=== PATIENT | female | born 1965 | race African-American/Black ===

== ENCOUNTER 2018-08-11 16:32 | Emergency (ER) | payer SELFPAY ==
--- NOTE | 2018-08-11 17:01 | ER Document Report ---
ED Medical Screen (RME) - General Chief Complaint: Headache Stated Complaint: HEADACHE/DIARRHEA Time Seen by Provider: 08/11/18 16:57 Mode of Arrival: Ambulatory Information source: Patient Notes: 53-year-old female presented to ED for headache since yesterday cough congestion for 2-3 weeks diarrhea for 2-3 days worse yesterday with 4-5 stools yesterday pain in the left shoulder and "bad "headache. When I asked her how bad the headache is she says it just hurts off and on. She is very congested. Lungs clear respirations regular and unlabored denies abdominal pain. I have greeted and performed a rapid initial assessment of this patient. A comprehensive ED assessment and evaluation of the patient, analysis of test results and completion of medical decision making process will be conducted by an additional ED providers. TRAVEL OUTSIDE OF THE [place] IN LAST 30 DAYS: No - Related Data Allergies/Adverse Reactions: No Known Allergies Allergy (Unverified 08/11/18 16:33) Physical Exam - Vital signs Vitals: Temp Pulse Resp BP Pulse Ox 98.2 F 94 16 141/89 H 97 08/11/18 16:37 08/11/18 16:37 08/11/18 16:37 08/11/18 16:37 08/11/18 16:37 Course - Vital Signs Vital signs: Temp Pulse Resp BP Pulse Ox 98.2 F 94 16 141/89 H 97 08/11/18 16:37 08/11/18 16:37 08/11/18 16:37 08/11/18 16:37 08/11/18 16:37
[2018-08-11 17:21] LABS: ABSOLUTE BASOPHILS # (AUTO) 0.1 10^3/uL (0.0-0.2); ABSOLUTE EOSINOPHILS # (AUTO) 0.1 10^3/uL (0.0-0.6); ABSOLUTE LYMPHOCYTES (AUTO) 2.4 10^3/uL (0.5-4.7); ABSOLUTE MONOCYTES (AUTO) 0.7 10^3/uL (0.1-1.4); ABSOLUTE NEUT (AUTO) 3.5 10^3/uL (1.7-8.2); BASOPHILS % (AUTO) 1.2 % (0-2); HEMATOCRIT 35.9 % (36.0-47.0); HEMOGLOBIN 11.3 g/dL (12.0-15.5); LYMPHOCYTES % (AUTO) 35.8 % (13-45); MEAN CORPUSCULAR HEMOGLOBIN 22.8 pg (27.0-33.4); MEAN CORPUSCULAR HGB CONC 31.5 g/dL (32.0-36.0); MEAN CORPUSCULAR VOLUME 72 fl (80-97); MONOCYTES % (AUTO) 10.5 % (3-13); PLATELET COUNT 345 10^3/uL (150-450); RED BLOOD COUNT 4.96 10^6/uL (3.72-5.28); RED CELL DISTRIBUTION WIDTH 15.8 % (11.5-14.0); SEGMENTED NEUTROPHILS % (AUTO) 51.5 % (42-78); TOTAL CELLS COUNTED % (AUTO) 100 %; WHITE BLOOD COUNT 6.7 10^3/uL (4.0-10.5)
[2018-08-11 17:26] LABS: APPEARANCE,URINE CLEAR; BILIRUBIN,URINE NEGATIVE (NEGATIVE); COLOR,URINE YELLOW; GLUCOSE, URINE NEGATIVE (NEGATIVE); KETONES,URINE NEGATIVE (NEGATIVE); LEUKOCYTE ESTERASE,URINE NEGATIVE (NEGATIVE); NITRITE,URINE NEGATIVE (NEGATIVE); PROTEIN,URINE NEGATIVE (NEGATIVE); URINE SPECIFIC GRAVITY 1.015; UROBILINOGEN,URINE NEGATIVE mg/dL (<2.0)
--- NOTE | 2018-08-11 17:26 | RADIOLOGY REPORT (SQ) ---
EXAM DESCRIPTION: SHOULDER LEFT 2 OR MORE VIEWS COMPLETED DATE/TIME: 08/11/2018 5:18 pm REASON FOR STUDY: left shoulder pain with pain with rom COMPARISON: None. NUMBER OF VIEWS: Three views. TECHNIQUE: Internal rotation, external rotation, and Y view images acquired of the left shoulder. LIMITATIONS: None. FINDINGS: MINERALIZATION: Normal. BONES: No acute fracture or dislocation. No worrisome bone lesions. JOINTS: No dislocation. VISUALIZED LUNGS AND RIBS: No pneumothorax. No rib fracture. SOFT TISSUES: No radiopaque foreign body. OTHER: No other significant finding. IMPRESSION: NEGATIVE STUDY OF THE LEFT SHOULDER. NO RADIOGRAPHIC EVIDENCE OF ACUTE INJURY. TECHNICAL DOCUMENTATION: JOB ID: [id number] [employer]- All Rights Reserved Reading location - IP/workstation name: [email or web address]
--- NOTE | 2018-08-11 17:27 | RADIOLOGY REPORT (SQ) ---
EXAM DESCRIPTION: CHEST 2 VIEWS COMPLETED DATE/TIME: 08/11/2018 5:18 pm REASON FOR STUDY: cough congestion COMPARISON: None. EXAM PARAMETERS: NUMBER OF VIEWS: two views TECHNIQUE: Digital Frontal and Lateral radiographic views of the chest acquired. RADIATION DOSE: NA LIMITATIONS: none FINDINGS: LUNGS AND PLEURA: No opacities. There is focal radiodensity on the left possibly pulmonar y nodule. No effusions. MEDIASTINUM AND HILAR STRUCTURES: No masses or contour abnormalities. HEART AND VASCULAR STRUCTURES: Heart normal size. No evidence for failure. BONES: No acute findings. HARDWARE: None in the chest. OTHER: No other significant finding. IMPRESSION: No acute findings. Possible nodule left. TECHNICAL DOCUMENTATION: JOB ID: [id number] [employer]- All Rights Reserved Reading location - IP/workstation name: [email or web address]
[2018-08-11] MEDS ORDERED: IBUPROFEN 600 MG TABLET PO ONE (17:40)
[2018-08-11] MEDS ORDERED: LIDOCAINE 5% (700 MG) TRANSDERMAL ADH..PATCH TP ONE (17:41)
[2018-08-11] MEDS ORDERED: ACETAMINOPHEN 325 MG TABLET PO ONE (17:41)
[2018-08-11 17:46] LABS: ALANINE AMINOTRANSFERASE 24 U/L (9-52); ALBUMIN 4.6 g/dL (3.5-5.0); ALKALINE PHOSPHATASE 114 U/L (38-126); ANION GAP 9 (5-19); ASPARTATE AMINO TRANSFERASE 25 U/L (14-36); BILIRUBIN,DIRECT 0.3 mg/dL (0.0-0.4); BILIRUBIN,TOTAL 0.4 mg/dL (0.2-1.3); BLOOD UREA NITROGEN 12 mg/dL (7-20); CALCIUM 9.9 mg/dL (8.4-10.2); CARBON DIOXIDE 26 mmol/L (22-30); CHLORIDE 108 mmol/L (98-107); GLUCOSE 104 mg/dL (75-110); POTASSIUM 3.9 mmol/L (3.6-5.0); SODIUM 142.7 mmol/L (137-145); TOTAL PROTEIN 8.4 g/dL (6.3-8.2)
--- NOTE | 2018-08-11 17:49 | ER Document Report ---
ED General - General Chief Complaint: Headache Stated Complaint: HEADACHE/DIARRHEA Time Seen by Provider: 08/11/18 16:57 Mode of Arrival: Ambulatory Notes: Patient is a 53-year-old female who presents the emergency department with a chief complaint of diarrhea. She states that she has had diarrhea for the past 2 days. 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 She states that her residents have been having diarrhea and she has been working with them closely. Her shifts are 12-hour shifts and she is on her feet most of the day. She states that she had diarrhea about 5 times yesterday. She now has a associated headache. She also complains of left shoulder pain that has been hurting for the past 2 weeks. 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 She denies any vomiting or nausea. She denies any dysuria. TRAVEL OUTSIDE OF THE [place] IN LAST 30 DAYS: No - Related Data Allergies/Adverse Reactions: No Known Allergies Allergy (Unverified 08/11/18 16:33) Past Medical History - General Information source: Patient - Social History Smoking Status: Never Smoker Chew tobacco use (# tins/day): No Frequency of alcohol use: Occasional Drug Abuse: None Lives with: Family Family History: Reviewed & Not Pertinent Patient has suicidal ideation: No Patient has homicidal ideation: No Renal/ Medical History: Denies: Hx Peritoneal Dialysis Past Surgical History: Reports: Hx Orthopedic Surgery - bilateral bunion removal Review of Systems - Review of Systems Notes: REVIEW OF SYSTEMS: CONSTITUTIONAL : Denies recent illness. Denies recent unintentional weight loss. Denies fever, chills, or sweats. EENT: Denies eye, ear, throat, or mouth pain, discharge, or symptoms. Denies nasal or sinus congestion. CARDIOVASCULAR: Denies chest pain. RESPIRATORY: Denies shortness of breath, cough, congestion, difficulty b reathing, or wheezing. GASTROINTESTINAL: See HPI GENITOURINARY: Denies difficulty urinating, burning, blood in urine, urgency or frequency. MUSCULOSKELETAL: Denies neck and back pain. Denies joint pain or swelling. SKIN: Denies rash, itchiness, or lesions HEMATOLOGIC : Denies easy bruising or bleeding. LYMPHATIC: Denies swollen, painful, enlarged glands. NEUROLOGICAL: HPI PSYCHIATRIC: Denies stress, anxiety, alteration in sleep patterns, or depression. All other systems reviewed and negative. Physical Exam - Vital signs Vitals: Temp Pulse Resp BP Pulse Ox 98.2 F 94 16 141/89 H 97 08/11/18 16:37 08/11/18 16:37 08/11/18 16:37 08/11/18 16:37 08/11/18 16:37 - Notes Notes: PHYSICAL EXAMINATION: GENERAL: Appears well, healthy, well-nourished, no acute distress. HEAD: Normocephalic, atraumatic. EYES: PERRL, conjunctiva normal, all extraocular movements intact, sclera nonicteric ENT: Dry mucous membranes. NECK: Supple, no noticeable swelling, redness, rash. Normal range of motion. LUNGS: Equal breath sounds bilaterally and clear to auscultation. No wheezes rales or rhonchi. CARDIOVASCULAR: S1-S2, regular rate, regular rhythm. Radial pulses 2+, normal. ABDOMEN: Normoactive bowel sounds. Soft, mildly tender, no guarding, no rebo und tenderness, and no masses palpated. EXTREMITIES: Normal strength and range of motion, no pitting or edema. No cyanosis. NEUROLOGICAL: Moves all extremities upon command. Strength 5/5 in all e xtremities. PSYCH: Normal mood, normal affect. SKIN: Warm, dry. No rash, lesions, ulcerations noted. Normal skin turgor. Course - Re-evaluation Re-evalutation: 08/11/18 17:49 I suspect the patient's headache is related to her diarrhea and dehydrated state. Her mucous membranes are dry. I gave the patient option of p.o. fluids or IV fluids and she requested to have p.o. fluids. She will also be given lidocaine patches, Motrin, and Tylenol for her pain. 08/11/18 17:51 Patient's labs are unremarkable at this time. We will see how she tolerates her p.o. fluid and see if her headache goes away with Motrin and Tylenol. Her left shoulder pain will be treated with lidocaine patch. 08/11/18 18:18 Her chest x-ray and left shoulder x-ray are unremarkable. I do not suspect she has any acute disease process at this time. Do not suspect she has an acute intracranial bleed because she has no focal neurological deficits. I again think that she is having headache due to her dehydration. She is able to tolerate her p.o. fluids. She states she is feeling better after having her Motrin and Tylenol. Verbal discharge instructions were given to the patient. They verbalized understanding. They are stable for discharge. - Vital Signs Vital signs: Temp Pulse Resp BP Pulse Ox 97.6 F 73 16 131/79 H 100 08/11/18 19:11 08/11/18 19:11 08/11/18 19:11 08/11/18 19:11 08/11/18 19:11 - Laboratory Result Diagrams: 08/11/18 17:05 08/11/18 17:05 Laboratory results interpreted by me: 08/11/18 08/11/18 08/11/18 17:05 17:05 17:10 Hgb 11.3 L Hct 35.9 L MCV 72 L MCH 22.8 L MCHC 31.5 L RDW 15.8 H Chloride 108 H Total Protein 8.4 H Urine Ascorbic Acid 40 H Discharge - Discharge Clinical Impression: Diarrhea Qualifiers: Diarrhea type: unspecified type Qualified Code(s): R19.7 - Diarrhea, unspecified Left shoulder pain Qualifiers: Chronicity: acute Qualified Code(s): M25.512 - Pain in left shoulder Headache Qualifiers: Headache type: unspecified Headache chronicity pattern: acute headache Intractability: not intractable Qualified Code(s): R51 - Headache Condition: Stable Disposition: HOME, SELF-CARE Additional Instructions: Your seen today in the emergency department for a headache, diarrhea, and left shoulder pain. Please make sure you stay well hydrated and drink plenty of fluids. Eat some bananas to help make your stool firmer. You may drink Gatorade to help replace electrolytes. Your headache is most likely due to de hydration. You can take Motrin 600 mg and Tylenol 1000 mg every 6 hours as needed for the pain. You can use [id number] Aspercreme with lidocaine and applied to your left shoulder as needed for pain. You may also use on other joints that are sore. If you develop a fever greater than 100.4 F, are unable to keep food or drink down, or have any symptoms that are worrisome to you, please return to the emergency department. You did have a possible nodule on your chest x-ray. Please follow-up with a primary care provider within the next week.
[2018-08-11 19:12] VITALS: BP 131/79
== END 2018-08-11 19:14 | disposition home or self-care (01) ==
LOC: ER 16:32
DX: R51 Headache (principal); R19.7 Diarrhea, unspecified; M25.512 Pain in left shoulder
CPT/HCPCS: 36415; 71046; 80053; 81001; 85025; 99284

== ENCOUNTER → 2019-02-16 | Outpatient (CLI) | payer BC | LOC: WI 10:04 | PROVIDERS: ATTEND Family Medicine Geriatric Medicine | DX: Z12.31 Encounter for screening mammogram for malignant neoplasm of breast (principal) | CPT/HCPCS: 77067 ==

== ENCOUNTER 2020-05-24 07:42 | Emergency (ER) | payer SELFPAY ==
[2020-05-24] MEDS ORDERED: NORMAL SALINE 1000 ML 1,000 ML IV ONE (09:02)
--- NOTE | 2020-05-24 09:05 | ER Document Report ---
ED General - General Chief Complaint: Headache Stated Complaint: HEADACHE/STUFFY NOSE/VOMITING Time Seen by Provider: 05/24/20 08:06 Primary Care Provider: CHANTEL MIRZA MD [Primary Care Provider] - Follow up as needed (in 24-48 hours as needed) ASIF CANCHOLA MD [ACTIVE STAFF] - Follow up as needed FRANCIS WILLS MD [ACTIVE STAFF] - Follow up as needed TRAVEL OUTSIDE OF THE [place] IN LAST 30 DAYS: No - HPI Notes: 55-year-old female presents the emergency room for complaints of congestion, headache, body aches, sore throat, nausea, chest pain with coughing, states she reports she is coughing up clear phlegm that started 2 days ago. 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 States she is never had a positive COVID test. She is a smoker, is not on any oral medications. Only history is a peptic ulcer years ago, last bowel movement was 2 days ago, her primary care provider is Dr. Sanchez. Patient did not get a flu shot yet this year. She reports that she feels flu-like. Denies any prior history of heart issues. Only states she has heart pain when she coughs, clear phlegm. denies fevers, chills,,palpitations, shortness of breath, dyspnea, nausea, vomiting, diarrhea, abdominal pain, hematuria,blurred vision, double vision, loss of vision, speech changes, LH, dizziness, syncope, headaches, wheezing, neck pain, weakness, bowel or bladder dysfunction, saddle anesthesia, numbness or tingling in bilateral upper or lower extremities equally, muscle paralysis, weakness in bilateral upper or lower extremities equally or rash. Denies IV drug use. MEDICATIONS: I agree with the patient medications as charted by the RN. ALLERGIES: I agree with the allergies as charted by the RN. PAST MEDICAL HISTORY/PAST SURGICAL HISTORY: Reviewed and agree as charted by RN. SOCIAL HISTORY: Reviewed and agree as charted by RN. FAMILY HISTORY: No significant familial comorbid conditions directly related to patient complaint PHYSICAL EXAMINATION: GENERAL: Well-appearing, well-nourished and in no acute distress. HEAD: Atraumatic, normocephalic. EYES: Pupils equal round and reactive to light, extraocular movements intact, conjunctiva are normal. ENT: Nares patent, oropharynx clear without exudates. Moist mucous membranes. NECK: Normal range of motion, supple without lymphadenopathy LUNGS: Breath sounds clear to auscultation bilaterally and equal. No wheezes rales or rhonchi. HEART: Regular rate and rhythm without murmurs. Able to reproduce chest pain when patient coughed and on palpation. ABDOMEN: Soft, nontender, nondistended abdomen. No guarding, no rebound. No masses appreciated. Female : deferred Musculoskeletal: Normal range of motion, no pitting or edema. No cyanosis. NEUROLOGICAL: Cranial nerves grossly intact. Normal speech, normal gait. Normal sensory, motor exams PSYCH: Normal mood, normal affect. SKIN: Warm, Dry, normal turgor, no rashes or lesions noted. Dictation was performed using [employer] recognition software - Related Data Allergies/Adverse Reactions: No Known Allergies Allergy (Unverified 08/11/18 16:33) Past Medical History - General Information source: Patient - Social History Smoking Status: Current Every Day Smoker Family History: Reviewed & Not Pertinent Renal/ Medical History: Denies: Hx Peritoneal Dialysis GI Medical History: Reports: Hx Ulcer Past Surgical History: Reports: Hx Orthopedic Surgery - bilateral bunion removal Review of Systems - Review of Systems Constitutional: See HPI EENT: No symptoms reported Cardiovascular: No symptoms reported Respiratory: See HPI Gastrointestinal: No symptoms reported Genitourinary: No symptoms reported Female Genitourinary: No symptoms reported Musculoskeletal: No symptoms reported Skin: No symptoms reported Hematologic/Lymphatic: No symptoms reported Neurological/Psychological: No symptoms reported Physical Exam - Vital signs Vitals: Temp Pulse Resp BP Pulse Ox 98.4 F 88 18 132/84 H 100 05/24/20 07:57 05/24/20 07:57 05/24/20 07:57 05/24/20 07:57 05/24/20 07:57 Course - Re-evaluation Re-evalutation: 05/24/20 15:09 Afebrile vital stable no distress. Nurses notes reviewed. CBC negative for leukocytosis or anemia, CMP negative for hepatic or renal dysfunction, no electrolyte disturbances. 2 troponins drawn within 4 hours from each other negative, EKG negative for STEMI. Chest x-ray unremarkable. Patient given IV fluids. rapid flu and rapid strep negative, patient is a PUI, patient has pending COVID test. on reevaluation at 12:00, patient states her headache was much better. Discussed with patient that she is a P URI, she does need to self quarantine at home until COVID results are resulted, maintain social distancing, wash hands. She cannot work until results of COVID testing are known. 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 you know but it patient states she is feeling much better but she still has a cough and a sore throat. After performing a Medical Screening Examination, I estimate there is LOW risk for ACUTE CORONARY SYNDROME, PULMONARY EMBOLI, RESPIRATORY FAILURE, SEPSIS OR MENINGITIS, thus I consider the discharge disposition reasonable. I have reevaluated this patient multiple times and no significant life threatening changes are noted. The patient and I have discussed the diagnosis and risks, and we agree with discharging home with close follow-up. We also discussed returning to the Emergency Department immediately if new or worsening symptoms occur. We have discussed the symptoms which are most concerning (e.g., changing or worsening pain, trouble swallowing or breathing, neck stiffness, fever) that necessitate immediate return. - Vital Signs Vital signs: Temp Pulse Resp BP Pulse Ox 98.6 F 73 18 140/90 H 97 05/24/20 13:44 05/24/20 13:44 05/24/20 13:44 05/24/20 13:44 05/24/20 13:44 - Laboratory Result Diagrams: 05/24/20 09:20 05/24/20 09:20 Laboratory results interpreted by me: 05/24/20 05/24/20 09:20 09:20 RBC 5.36 H MCV 73 L MCH 24.0 L RDW 15.2 H Lymph % (Auto) 9.3 L Seg Neutrophils % 78.9 H Calcium 10.3 H Alkaline Phosphatase 137 H Creatine Kinase 236 H Total Protein 9.5 H Albumin 5.2 H - EKG Interpretation by Me EKG shows normal: Sinus rhythm Rate: Normal Rhythm: NSR Discharge - Discharge Clinical Impression: Person under investigation for COVID-19 Condition: Stable Disposition: HOME, SELF-CARE Instructions: COVID-19 Guidance for Persons Under Investigation Additional Instructions: All of your labs were normal. Your EKG as well as your cardiac enzymes were normal. Your rapid strep and rapid flu were negative. Your COVID test is pending. It is advised that you self quarantine until your labs result. Please maintain social distancing and wear your mask. Please wash your hands frequently. You were given a work note to remain at home until your COVID results Prescriptions: Ondansetron [Zofran Odt 4 mg Tablet] 1 - 2 tab PO Q4H PRN #15 tab.rapdis PRN Reason: For Nausea/Vomiting Forms: Return to Work Referrals: CHANTEL MIRZA MD [Primary Care Provider] - Follow up as needed (in 24-48 hours as needed) FRANCIS WILLS MD [ACTIVE STAFF] - Follow up as needed ASIF CANCHOLA MD [ACTIVE STAFF] - Follow up as needed
[2020-05-24 09:43] LABS: ABSOLUTE BASOPHILS # (AUTO) 0.1 10^3/uL (0.0-0.2); ABSOLUTE LYMPHOCYTES (AUTO) 0.9 10^3/uL (0.5-4.7); ABSOLUTE NEUT (AUTO) 7.4 10^3/uL (1.7-8.2); BASOPHILS % (AUTO) 0.5 % (0-2); EOSINOPHILS % (AUTO) 0.2 % (0-6); HEMATOCRIT 39.3 % (36.0-47.0); HEMOGLOBIN 12.9 g/dL (12.0-15.5); LYMPHOCYTES % (AUTO) 9.3 % (13-45); MEAN CORPUSCULAR HGB CONC 32.8 g/dL (32.0-36.0); MEAN CORPUSCULAR VOLUME 73 fl (80-97); MONOCYTES % (AUTO) 11.1 % (3-13); PLATELET COUNT 324 10^3/uL (150-450); RED BLOOD COUNT 5.36 10^6/uL (3.72-5.28); RED CELL DISTRIBUTION WIDTH 15.2 % (11.5-14.0); SEGMENTED NEUTROPHILS % (AUTO) 78.9 % (42-78); TOTAL CELLS COUNTED % (AUTO) 100 %; WHITE BLOOD COUNT 9.4 10^3/uL (4.0-10.5)
--- NOTE | 2020-05-24 10:00 | RADIOLOGY REPORT (SQ) ---
EXAM DESCRIPTION: CHEST SINGLE VIEW IMAGES COMPLETED DATE/TIME: 05/24/2020 9:51 am REASON FOR STUDY: chest pain, coughing COMPARISON: 08/11/2018. EXAM PARAMETERS: NUMBER OF VIEWS: One view. TECHNIQUE: Single frontal radiographic view of the chest acquired. RADIATION DOSE: NA LIMITATIONS: None. FINDINGS: LUNGS AND PLEURA: No opacities, masses or pneumothorax. No pleural effusion. MEDIASTINUM AND HILAR STRUCTURES: No masses. Contour normal. HEART AND VASCULAR STRUCTURES: Heart normal in size. Normal vasculature. BONES: No acute findings. HARDWARE: None in the chest. OTHER: No other significant finding. IMPRESSION: NO ACUTE RADIOGRAPHIC FINDING IN THE CHEST. TECHNICAL DOCUMENTATION: JOB ID: [id number] [employer]- All Rights Reserved Reading location - IP/workstation name: [email or web address]
[2020-05-24 10:01] LABS: ALBUMIN 5.2 g/dL (3.5-5.0); ALKALINE PHOSPHATASE 137 U/L (38-126); ANION GAP 13 (5-19); ASPARTATE AMINO TRANSFERASE 31 U/L (14-36); BILIRUBIN,DIRECT 0.3 mg/dL (0.0-0.4); BILIRUBIN,TOTAL 0.8 mg/dL (0.2-1.3); BLOOD UREA NITROGEN 10 mg/dL (7-20); CALCIUM 10.3 mg/dL (8.4-10.2); CARBON DIOXIDE 25 mmol/L (22-30); CHLORIDE 102 mmol/L (98-107); CREATINE KINASE 236 U/L (30-135); GLUCOSE 110 mg/dL (75-110); POTASSIUM 4.3 mmol/L (3.6-5.0); TOTAL PROTEIN 9.5 g/dL (6.3-8.2)
[2020-05-24 10:11] LABS: A TYPE INFLUENZA AG NEGATIVE (NEGATIVE); B INFLUENZA AG NEGATIVE (NEGATIVE)
[2020-05-24 10:12] LABS: CREATINE KINASE MB 0.63 ng/mL (<4.55)
[2020-05-24 10:14] LABS: TROPONIN I < 0.012 ng/mL
--- NOTE | 2020-05-24 12:15 | EKG REPORT ---
SEVERITY:- BORDERLINE ECG - SINUS RHYTHM PROBABLE LEFT ATRIAL ABNORMALITY : Confirmed by: Raman Monique MD 24-May-2020 12:14:17
[2020-05-24 13:47] VITALS: BP 140/90
== END 2020-05-24 13:48 | disposition home or self-care (01) ==
LOC: ER 07:42
DX: Z20.828 Contact with and (suspected) exposure to other viral communicable diseases (principal); R51.9 Headache, unspecified; R11.2 Nausea with vomiting, unspecified; M79.10 Myalgia, unspecified site; R07.9 Chest pain, unspecified; R05 Cough; F17.200 Nicotine dependence, unspecified, uncomplicated
CPT/HCPCS: 93005; 99285; 96360; 96361; 36415; 87070; 82553; 87880; 82550; 85025; 87635; 80053; 84484; 87804; 71045; 93010; J7030; C9803